=== PATIENT | female | born 1970 | race Caucasian/White ===

== ENCOUNTER 2020-01-19 13:30 | Emergency (ER) | payer SELFPAY ==
[~2020-01-19] VITALS: Ht 172.7 cm; Wt 133.8 kg
[2020-01-19 13:56] VITALS: Ht 172.7 cm; Wt 133.8 kg
[2020-01-19 15:30] LABS: BASOPHIL % 0.9 % (0-2); PLATELET COUNT 352 x10^3mcL (130-400)
[2020-01-19 15:33] LABS: RED CELL DISTRIBUTION WIDTH 14.8 % (11.5-14.5)
[2020-01-19 15:47] LABS: CALCIUM 8.9 mg/dL (8.5-10.1); CARBON DIOXIDE 26.4 mmol/L (21-32); CHLORIDE SERUM 104 mmol/L (98-107); CREATININE SERUM 0.8 mg/dL (0.6-1.0); GFR1 > 60 mL/min; GLUCOSE SERUM 97 mg/dL (74-106); POTASSIUM SERUM 3.6 mmol/L (3.5-5.1); SODIUM SERUM 141 mmol/L (136-145)
[2020-01-19 15:52] LABS: ALBUMIN 3.4 g/dL (3.4-5.0); ALKALINE PHOSPHATASE 84 U/L (46-116); ALT/SGPT 43 U/L (14-59); BILIRUBIN DIRECT 0.38 mg/dL (0.0-0.2); BILIRUBIN TOTAL 1.43 mg/dL (0.20-1.00); TOTAL PROTEIN, SERUM 7.1 g/dL (6.4-8.2)
[2020-01-19 15:53] LABS: AST/SGOT 48 U/L (15-37)
[2020-01-19 15:59] LABS: MAGNESIUM 2.4 mg/dL (1.8-2.4); PHOSPHOROUS 3.4 mg/dL (2.5-4.9)
[2020-01-19 16:44] VITALS: BP 157/77
== END 2020-01-19 17:00 | disposition home or self-care (01) ==
LOC: ED 13:30
PROVIDERS: Emergency Medicine; Specialist
DX: D64.9 Anemia, unspecified (principal); R55 Syncope and collapse; I10 Essential (primary) hypertension; Z98.84 Bariatric surgery status
CPT/HCPCS: 36415